=== PATIENT | female | born 1970 | race Caucasian/White ===

== ENCOUNTER 2021-06-08 14:19 | Emergency (ER) | payer OTHER, BC, SELFPAY ==
[2021-06-08 14:26] VITALS: BP 184/102; PULSE 95; RESP 20; TEMP 36.3; O2SAT 99; BMI 32.7
--- NOTE | 2021-06-08 14:57 | RAD_ITS ---
INDICATION: trauma EXAMINATION/TECHNIQUE: X-RAY - LEFT XR Foot Min 3 Views 3 VIEWS COMPARISON: None. FINDINGS: SOFT TISSUES: No soft tissue swelling or gas. No radiopaque foreign body. BONES/JOINTS: No acute fracture or subluxation.. Normal alignment. Preservation of the joint space.. No sclerotic or destructive changes observed. RAD/Foot min 3 Views IMPRESSION: Negative. Electronically Signed: Sander Pierre MD at 15:30 EST ,
--- NOTE | 2021-06-08 14:59 | EDS_ITS ---
HPI HPI - Fall History of Present Illness Chief Complaint: Trauma Narrative Narrative: 50-year-old female presenting with left foot pain. She states she was unloading an ice cream truck and the tailgate spring broke and this fell on her foot. She did not sustain any laceration but does state that she could not bear weight. She states this was a very large tailgate that actually comes down electrically and then has another folding out section. Patient placed in a splint on scene by EMS and brought to the ER for evaluation. Patient denies any other injury this time. She denies numbness and tingling PFSH PFSH Medical History Hypertension Hypothyroid Irritable bowel syndrome (IBS) Home Medications cholestyramine-aspartame [Prevalite] 4 g PO DAILY 06/08/21 [History Last Taken Unknown] hydrocodone-acetaminophen 1 tab PO Q6H PRN 3 Days #12 tab 06/08/21 [Rx Last Taken Unknown] levothyroxine [Synthroid] 75 mcg PO DAILY 06/08/21 [History Last Taken Unknown] olmesartan [Benicar] 5 mg PO DAILY 06/08/21 [History Last Taken Unknown] Allergy/AdvReac Type Severity Reaction Status Date / Time No Known Allergies Allergy Verified 06/08/21 14:23 Surgical History History of hysterectomy Social History Smoking Status: Never smoker ROS ROS ED Constitutional Constitutional ED: Denies fever(s) or sweats Eyes Eyes: Denies blurry vision or change in vision ENT ENT ED: Denies rhinorrhea or sore throat Cardiovascular Cardiovascular: Denies chest pain or palpitations Respiratory/Chest Respiratory/Chest: Denies cough or dyspnea Gastrointestinal Gastrointestinal: Denies abdominal pain, nausea or vomiting Genitourinary Genitourinary ED: Denies dysuria or hematuria Musculoskeletal Musculoskeletal: Reports other Details: Left foot pain ; Denies arthralgias or myalgias Integumentary Denies abscess or rash Neurologic Neurologic: Denies headache(s) EXAM Physical Exam Const Vital Signs: 06/08/21 14:26 06/08/21 14:29 Temperature 97.4 F L Temperature Source Oral Pulse Rate 95 Respiratory Rate 20 H Respiratory Effort Normal Non-Labored Respiratory Depth Normal Respiratory Pattern Normal Blood Pressure 184/102 H Blood Pressure Mean 129 Pulse Ox 99 Oxygen Delivery Method Room Air Room Air Positive well nourished General Appearance ED: RITIKA GARCIA Reports normocephalic atraumatic Eyes PERRL and EOMs intact bilaterally Resp normal respiratory effort and clear to auscultation bilaterally Cardio regular rate and regular rhythm Extremity Extremity Narrative: Tenderness to palpation over the left midfoot. No active bleeding or laceration noted. Neurovascular intact prescription filled all 5 toes. Neuro oriented x3 and CN's II-XII intact bilaterally Sensorium / Orientation: alert Psych mental status grossly normal Skin Rashes: no rashes MDM MDM MDM Narrative Medical decision making narrative: Patient presented with left foot pain. She has pain about the midfoot. There is no obvious deformities. No skin lacerations or abrasions. Left foot neurovascular intact brisk cap refill to all 5 toes. She was given IM morphine and Zofran. She was taken for x-rays of the left foot which on my interpretation show no acute fracture or subluxation. Patient still continues to have pain in the foot and does does not think she can ambulate. She is put in a postop shoe and given crutches for ambulation. She was given work restrictions and her Worker's Compensation paperwork was filled out. Patient was given a prescription for [place] for pain. She is discharged home in stable condition. Impression: 1. Left foot contusion Radiography Diagnostic Testing: Clinical Impression(s) from Imaging Studies Foot X-Ray 06/08/21 14:57 IMPRESSION: Negative. Electronically Signed: Sander Pierre MD at 15:30 EST , Discharge Plan Triage Chief Complaint: Trauma Other Complaint: Bite ED Provider: Aris Saab Dx/Rx/DC Orders Instructions: ED Foot Contusion Prescriptions: New hydrocodone-acetaminophen 5-325 mg tablet 1 tab PO Q6H PRN (Reason: pain) 3 Days Qty: 12 RF: 0 No Action levothyroxine [Synthroid] 75 mcg Tablet 75 mcg PO DAILY RF: 0 olmesartan [Benicar] 5 mg Tablet 5 mg PO DAILY RF: 0 Prevalite 4 gram Powder 4 g PO DAILY RF: 0 Primary Care Provider: Sander Tesfaye Referrals: Sander Tesfaye MD [Primary Care Provider] - [facility] [NON-STAFF] - 3-5 Days Disposition Disposition: Home, Self Care
[2021-06-08] MEDS: Morphine 4 MG/ML Syringe 6 MG IM (15:10)
[2021-06-08] MEDS: Ondansetron ODT 4 MG Tablet PO (15:11)
[2021-06-08 17:47] VITALS: BP 132/78; PULSE 78; RESP 16; TEMP 36.9; O2SAT 98
== END 2021-06-08 17:53 | disposition home or self-care (01) ==
PROVIDERS: Emergency Provider Student in an Organized Health Care Education/Training Program; PCP Family Medicine; Visit Provider Student in an Organized Health Care Education/Training Program
DX: S90.32XA Contusion of left foot, initial encounter (principal); W00.0XXA Fall on same level due to ice and snow, initial encounter; I10 Essential (primary) hypertension; E03.9 Hypothyroidism, unspecified; K58.9 Irritable bowel syndrome, unspecified
CPT/HCPCS: 73630; 96372; 99285

== ENCOUNTER 2021-06-30 11:06 | Outpatient (CLI) | payer OTHER, BC, SELFPAY ==
--- NOTE | 2021-06-30 11:09 | RAD_ITS ---
STUDY: X-RAY - LEFT FOOT CLINICAL: Female, 50 years old. Left foot inj TECHNIQUE: 3 view(s) of the foot. COMPARISON: Comparison is made with prior study dated 06/08/2021. FINDINGS: There is a plantar calcaneal spur. Normal visualized subtalar, talonavicular, calcaneocuboid, tarsal and tarsometatarsal articulations. Normal metatarsi. Normal metatarsophalangeal joint of the great toe. Normal tibial and fibular sesamoid bones. Normal interphalangeal joint of the great toe. Normal phalanges of the great toe. Normal second through fifth metatarsophalangeal joints. Normal interphalangeal joints and phalanges of the lesser toes. Soft tissue swelling. RAD/Foot min 3 Views IMPRESSION: Soft tissue swelling. Electronically Signed: Laci Lowery MD at 11:55 EST ,
== END 2021-06-30 23:59 | disposition home or self-care (01) ==
PROVIDERS: Referring Provider Physician Assistant Surgical; Visit Provider Physician Assistant Surgical
DX: S90.30XA Contusion of unspecified foot, initial encounter (principal)
CPT/HCPCS: 73630